=== PATIENT | male | born 1965 | race Two or more races ===

== ENCOUNTER → 2023-10-18 15:17 | Outpatient (CLI) | payer OTHER | END | disposition home or self-care (01) | LOC: SONOGRAMA 15:08 | PROVIDERS: ATTEND Physical Medicine & Rehabilitation | DX: M54.6 Pain in thoracic spine (principal); R10.9 Unspecified abdominal pain ==

== ENCOUNTER 2023-10-25 07:45 | Outpatient (CLI) | payer OTHER ==
[2023-10-25 08:25] LABS: HEMATOCRIT 42.7 % (39.0-48.0); HEMOGLOBIN 15.1 g/dL (13-16.00); MEAN CORPUSCULAR HEMOGLOBIN 31.6 pg (27.00-32.0); MEAN CORPUSCULAR HGB CONC 35.5 g/dl (32.0-36.0); PLATELET COUNT 222 K/uL (150-450); RED BLOOD COUNT 4.79 M/uL (4.00-6.00); RED CELL DISTRIBUTION WIDTH 13.5 % (11.5-14.5)
[2023-10-25 08:47] LABS: URINE APPEARANCE Clear; URINE BILIRRUBIN Negative (NEGATIVE); URINE BLOOD Negative; URINE COLOR Dark Yellow; URINE GLUCOSE Negative (NEGATIVE); URINE KETONE Negative (NEGATIVE); URINE LEUKOCYTE Negative; URINE NITRATE Negative; URINE PROTEIN Trace (NEGATIVE); URINE UROBILINOGEN 0.2 E.U./dl
[2023-10-25 08:51] LABS: URINE BACTERIA 54.1 uL (0.0-1933); URINE EPITHELIAL CELLS 4.6 uL (0.0-38.8); URINE RBC 13.4 uL (0.0-20.8)
[2023-10-25 10:21] LABS: RH POSITIVE
[2023-10-25 15:11] LABS: RAPID PLASMA REAGIN NONREACTIVE BY RPR (NONREACTIVE)
== END 2023-10-25 07:54 | disposition home or self-care (01) ==
LOC: LAB 07:45
DX: A53.9 Syphilis, unspecified (principal); D64.9 Anemia, unspecified; Z01.83 Encounter for blood typing; N39.0 Urinary tract infection, site not specified; J18.9 Pneumonia, unspecified organism

== ENCOUNTER → 2023-11-08 14:38 | Outpatient (CLI) | payer OTHER | END | disposition home or self-care (01) | LOC: LAB 11-07 14:58 | DX: N39.0 Urinary tract infection, site not specified (principal); R76.8 Other specified abnormal immunological findings in serum; A53.9 Syphilis, unspecified; Z01.83 Encounter for blood typing ==

== ENCOUNTER 2024-03-25 08:00 | Outpatient (CLI) | payer OTHER ==
[2024-03-25 09:17] LABS: PH,URINE 5.5 (5.0-8.0); URINE APPEARANCE Clear; URINE BILIRRUBIN Small (NEGATIVE); URINE BLOOD Negative; URINE COLOR Dark Yellow; URINE GLUCOSE Negative (NEGATIVE); URINE KETONE Trace (NEGATIVE); URINE LEUKOCYTE Negative; URINE NITRATE Negative
[2024-03-25 09:22] LABS: URINE BACTERIA 833.5 uL (0.0-1933); URINE EPITHELIAL CELLS 20.5 uL (0.0-38.8); URINE RBC 53.4 uL (0.0-20.8); URINE WBC 10.9 uL (0.0-23.2)
[2024-03-25 09:39] LABS: URINE PROTEIN 100 (NEGATIVE)
[2024-03-25 10:16] LABS: BILIRUBIN TOTAL 1.28 mg/dL (0.3-1.2); CALCIUM 9.5 mg/dL (8.5-10.1); CHOL HDL RATIO 3.1 (0-5.0); CREATININE SERUM 0.83 mg/dL (0.70-1.30); GFR 94.83; POTASSIUM 4.45 mEq/L (3.5-5.1); PROSTATIC SPECIFIC ANTIGEN 0.836 NG/ML (0.010-4.00); TSH 1.44 uIU/mL (0.358-3.74)
[2024-03-25 10:18] LABS: HEMATOCRIT 42.6 % (39.0-48.0); MEAN CELL VOLUME 89.5 fL (80.0-100.00); MEAN CORPUSCULAR HEMOGLOBIN 31.6 pg (27.00-32.0); MEAN CORPUSCULAR HGB CONC 35.3 g/dl (32.0-36.0); PLATELET COUNT 217 K/uL (150-450); RED BLOOD COUNT 4.76 M/uL (4.00-6.00); RED CELL DISTRIBUTION WIDTH 12.8 % (11.5-14.5)
== END 2024-03-25 08:01 | disposition home or self-care (01) ==
LOC: LAB 08:00
PROVIDERS: ATTEND Internal Medicine
DX: E78.5 Hyperlipidemia, unspecified (principal); I11.9 Hypertensive heart disease without heart failure; I21.3 ST elevation (STEMI) myocardial infarction of unspecified site; I73.9 Peripheral vascular disease, unspecified; N40.0 Benign prostatic hyperplasia without lower urinary tract symptoms; E55.9 Vitamin D deficiency, unspecified; R73.03 Prediabetes

== ENCOUNTER 2024-09-12 09:05 | Outpatient (CLI) | payer OTHER ==
[2024-09-12 08:40] LABS: BASO % 0.7 % (0.1-1.2); EOS # 0.30 (0.04-0.54); EOS % 3.9 % (0.7-7.0); LYMPH # 2.82 (1.18-3.74); LYMPH % 37.0 % (19.3-53.1); MEAN PLATELET VOLUME 10.80 fl (9.4-12.4); MONO # 0.61 (0.24-0.82); MONO % 8.0 % (4.7-12.5); NEUT # 3.82 (1.56-6.13); NEUT % 50.1 % (34.0-71.1); RED CELL DISTRIBUTION WIDTH 12.8 % (11.6-14.4); URINE APPEARANCE Clear; URINE BILIRRUBIN Negative (NEGATIVE); URINE BLOOD Small; URINE COLOR Dark Yellow; URINE GLUCOSE Negative (NEGATIVE); URINE KETONE Trace (NEGATIVE); URINE LEUKOCYTE Negative; URINE NITRATE Negative; URINE PROTEIN 30 (NEGATIVE); URINE UROBILINOGEN 1.0 E.U./dl
[2024-09-12 08:44] LABS: URINE BACTERIA 28.7 uL (0.0-1933); URINE EPITHELIAL CELLS 8.1 uL (0.0-38.8); URINE RBC 26.6 uL (0.0-20.8); URINE WBC 3.8 uL (0.0-23.2)
[2024-09-12 08:58] LABS: URINE CAST 0.14 uL (0.0-1.40)
[2024-09-12 10:05] LABS: ALT/SGPT 59.0 U/L (12-78); AST/SGOT 29.0 U/L (15-37); BILIRUBIN TOTAL 1.64 mg/dL (0.3-1.2); BUN CREA RATIO 16.0 (7.0-25.0); CHOL HDL RATIO 2.8 (0-5.0); CREATININE SERUM 0.86 mg/dL (0.70-1.30); GFR 91.02; GLOBULINA 3.1 G/DL (2.4-3.5); GLUCOSE FASTING 119.0 mg/dL (65-100); HDL 48.0 mg/dl (40-60); LDL 59.0 mg/dl (0-130); OSMOLALITY SERUM 285.0 MOSM/KG (275-295); TSH 1.59 uIU/mL (0.358-3.74); VLDL 27.0 (0-39)
[2024-09-12 13:03] LABS: ob POSITIVE (NEGATIVE)
== END 2024-09-12 09:06 | disposition home or self-care (01) ==
LOC: LAB 09:05
PROVIDERS: ATTEND Internal Medicine
DX: E55.9 Vitamin D deficiency, unspecified (principal); Z12.11 Encounter for screening for malignant neoplasm of colon; E03.9 Hypothyroidism, unspecified; E78.5 Hyperlipidemia, unspecified; E11.69 Type 2 diabetes mellitus with other specified complication; Z13.228 Encounter for screening for other metabolic disorders; R97.8 Other abnormal tumor markers

== ENCOUNTER → 2024-10-29 08:00 | Outpatient (CLI) | payer OTHER ==
[2024-10-29 09:00] LABS: BASO % 0.9 % (0.1-1.2); EOS # 0.30 (0.04-0.54); EOS % 3.7 % (0.7-7.0); LYMPH # 2.70 (1.18-3.74); LYMPH % 33.0 % (19.3-53.1); MEAN PLATELET VOLUME 10.30 fl (9.4-12.4); MONO # 0.80 (0.24-0.82); MONO % 9.8 % (4.7-12.5); NEUT # 4.26 (1.56-6.13); NEUT % 52.0 % (34.0-71.1); RED CELL DISTRIBUTION WIDTH 12.7 % (11.6-14.4)
[2024-10-29 09:29] LABS: COVID-19 AG NEGATIVE (NEGATIVE)
== END | disposition home or self-care (01) ==
LOC: LAB 08:00
PROVIDERS: ATTEND Internal Medicine
DX: U07.1 COVID-19 (principal); Z20.822 Contact with and (suspected) exposure to COVID-19; E78.5 Hyperlipidemia, unspecified; I11.9 Hypertensive heart disease without heart failure; I21.3 ST elevation (STEMI) myocardial infarction of unspecified site; R73.09 Other abnormal glucose; R31.29 Other microscopic hematuria; I73.9 Peripheral vascular disease, unspecified; B34.9 Viral infection, unspecified; Z20.828 Contact with and (suspected) exposure to other viral communicable diseases

== ENCOUNTER 2025-01-12 08:47 | Outpatient (CLI) | payer OTHER ==
[2025-01-12 09:05] LABS: BASO % 0.8 % (0.1-1.2); EOS # 0.25 (0.04-0.54); EOS % 3.4 % (0.7-7.0); LYMPH # 2.79 (1.18-3.74); LYMPH % 38.4 % (19.3-53.1); MEAN PLATELET VOLUME 10.50 fl (9.4-12.4); MONO # 0.62 (0.24-0.82); MONO % 8.5 % (4.7-12.5); NEUT # 3.53 (1.56-6.13); NEUT % 48.6 % (34.0-71.1); RED CELL DISTRIBUTION WIDTH 12.6 % (11.6-14.4)
[2025-01-12 09:08] LABS: ERYTHROCYTE SEDIMENTATION RATE 4 mm/hr (0-20)
[2025-01-12 09:16] LABS: URINE APPEARANCE Clear; URINE BILIRRUBIN Negative (NEGATIVE); URINE BLOOD Small; URINE COLOR Yellow; URINE GLUCOSE Negative (NEGATIVE); URINE KETONE Negative (NEGATIVE); URINE LEUKOCYTE Negative; URINE NITRATE Negative; URINE PROTEIN Negative (NEGATIVE); URINE UROBILINOGEN 0.2 E.U./dl
[2025-01-12 09:18] LABS: URINE BACTERIA 5.9 uL (0.0-1933); URINE EPITHELIAL CELLS 1.8 uL (0.0-38.8); URINE RBC 17.8 uL (0.0-20.8); URINE WBC 2.1 uL (0.0-23.2)
[2025-01-12 09:41] LABS: URINE CAST 0.00 uL (0.0-1.40)
[2025-01-12 10:05] LABS: ALT/SGPT 51 U/L (12-78); AST/SGOT 22 U/L (15-37); BILIRUBIN TOTAL 1.82 mg/dL (0.3-1.2); BUN CREA RATIO 18 (7.0-25.0); CHOL HDL RATIO 2.8 (0-5.0); CREATININE SERUM 0.78 mg/dL (0.70-1.30); GFR 101.53; GLOBULINA 3.0 G/DL (2.4-3.5); GLUCOSE FASTING 130 mg/dL (65-100); HDL 45 mg/dl (40-60); LDL 53 mg/dl (0-130); OSMOLALITY SERUM 283 MOSM/KG (275-295); VLDL 26 (0-39)
[2025-01-12 10:17] LABS: TSH 1.300 uIU/mL (0.358-3.74)
== END 2025-01-12 08:49 | disposition home or self-care (01) ==
LOC: LAB 08:47
PROVIDERS: ATTEND Internal Medicine
DX: E78.5 Hyperlipidemia, unspecified (principal); I11.9 Hypertensive heart disease without heart failure; I21.3 ST elevation (STEMI) myocardial infarction of unspecified site; R73.09 Other abnormal glucose; M77.8 Other enthesopathies, not elsewhere classified; M06.4 Inflammatory polyarthropathy; R31.21 Asymptomatic microscopic hematuria; I73.9 Peripheral vascular disease, unspecified

== ENCOUNTER → 2025-01-22 08:00 | Outpatient (CLI) | payer OTHER | END | disposition home or self-care (01) | LOC: LAB 07:32 | PROVIDERS: ATTEND Internal Medicine | DX: I11.9 Hypertensive heart disease without heart failure (principal); E78.9 Disorder of lipoprotein metabolism, unspecified; M06.4 Inflammatory polyarthropathy; Z11.3 Encounter for screening for infections with a predominantly sexual mode of transmission ==